=== PATIENT | female | born 1980 ===

== ENCOUNTER 2018-11-27 13:19 | Inpatient (IN) | payer OTHER ==
[~2018-11-27] VITALS: Ht 165.1 cm; Wt 86.2 kg
[~2018-11-27 13:19] MED LIST: DOCUSATE SODIU100 MG PO; Mylicon 125MG PO; NABUMETONE750 MG PO; NIFE60TA3 PO; PRENATAL TABLE1 EAC3 PO
[2018-11-30] MEDS ORDERED: GAS RELIEF125 MG PO (12:32)
[2018-11-30] MEDS ORDERED: IBUPROFEN800 MG PO (12:32)
[2018-11-30] MEDS ORDERED: DOCUSATE SODIU100 MG PO (12:32)
[2018-11-30] MEDS ORDERED: PREPLUS CA-FE1 EACH PO (12:32)
== END 2018-11-30 14:34 | disposition home or self-care (01) | DRG 788 ==
LOC: OBS/DEL 13:19 → OB/GYN 17:42 → LDR 17:42 → OB/GYN 21:14
PROVIDERS: ADMIT Obstetrics & Gynecology
PROC: 0DNW0ZZ Release Peritoneum, Open Approach (ICD-10-PCS; 2018-11-27)
PROC: 4A1HXCZ Monitoring of Products of Conception, Cardiac Rate, External Approach (ICD-10-PCS; 2018-11-27)
PROC: 4A033R1 Measurement of Arterial Saturation, Peripheral, Percutaneous Approach (ICD-10-PCS; 2018-11-27)
PROC: 10D00Z1 Extraction of Products of Conception, Low, Open Approach (ICD-10-PCS; principal; 2018-11-27 17:00)
DX: O60.14X0 Preterm labor third trimester with preterm delivery third trimester, not applicable or unspecified (principal); O34.211 Maternal care for low transverse scar from previous cesarean delivery; O99.62 Diseases of the digestive system complicating childbirth; O75.82 Onset (spontaneous) of labor after 37 completed weeks of gestation but before 39 completed weeks gestation, with delivery by (planned) cesarean section; K66.0 Peritoneal adhesions (postprocedural) (postinfection); Z3A.36 36 weeks gestation of pregnancy; Z37.0 Single live birth